=== PATIENT | male | born 1960 | race Caucasian/White ===

== ENCOUNTER 2016-03-14 21:29 | Emergency (ER) | payer MEDICAID, OTHER ==
[~2016-03-14] VITALS: Ht 167.6 cm; Wt 79.8 kg
[2016-03-14 22:01] VITALS: BP 149/87
== END 2016-03-14 23:21 | disposition home or self-care (01) ==
LOC: ER 21:34
DX: G89.29 Other chronic pain (principal); G62.9 Polyneuropathy, unspecified; E11.9 Type 2 diabetes mellitus without complications
CPT/HCPCS: 99281; A4606; Z7610; Z7502